=== PATIENT | male | born 1955 | race Caucasian/White ===

== ENCOUNTER 2017-10-31 13:49 | Inpatient (IN) | payer BC ==
[2017-10-31] MEDS ORDERED: NITROGLYCERIN OINT 1 INCH/GM PACKET TOPICAL STA (14:30)
[2017-10-31] MEDS ORDERED: ASPIRIN 81 MG PO STA (14:30)
[2017-10-31] MEDS ORDERED: HEPARIN SODIUM,PORCINE 5,000 UNIT/ML 1 ML VIAL IV ONE (14:33)
--- NOTE | 2017-10-31 14:33 | ED ---
General Adult HPI - General Chief complaint: Chest Pain Stated complaint: heart attack-sent by Time Seen by Provider: 10/31/17 14:00 Source: patient, RN notes reviewed Mode of arrival: wheelchair Limitations: no limitations - History of Present Illness Initial comments: This is a 62-year-old male who presents emergency Department because he had a stress test this morning and was called back because the stress test was abnormal. Patient states she's been having intermittent left-sided chest pain with arm pain. Patient states he has the chest pain in the arm pain currently. Patient denies any shortness of breath difficulty breathing or diaphoresis. Patient denies any nausea vomiting diarrhea. Patient denies any recent fever chills or cough. Patient denies any lightheadedness dizziness or near-syncopal episode. - Related Data Home Medications Medication Instructions Recorded Confirmed Allopurinol [Zyloprim] 300 mg PO DAILY 10/31/17 10/31/17 Aspirin EC [Ecotrin Low Dose] 81 mg PO DAILY 10/31/17 10/31/17 Fenofibrate Nanocrystallized 145 mg PO DAILY 10/31/17 10/31/17 [Fenofibrate] Fish Oil/Dha/Epa [Fish Oil 1,200 1 cap PO DAILY 10/31/17 10/31/17 mg Fish Oil] Loratadine [Claritin] 10 mg PO DAILY 10/31/17 10/31/17 Losartan/Hydrochlorothiazide 1 tab PO DAILY 10/31/17 10/31/17 [Losartan-Hctz 100-25 mg Tab] Multivitamins, Thera [Multivitamin 1 tab PO DAILY 10/31/17 10/31/17 (formulary)] Allergies Allergy/AdvReac Type Severity Reaction Status Date / Time morphine Allergy Rash/Hives Verified 10/31/17 14:29 Review of Systems ROS Statement: Those systems with pertinent positive or pertinent negative responses have been documented in the HPI. ROS Other: All systems not noted in ROS Statement are negative. Past Medical History Past Medical History: Coronary Artery Disease (CAD), Hyperlipidemia, Hypertension History of Any Multi-Drug Resistant Organisms: None Reported Past Surgical History: Back Surgery Past Psychological History: No Psychological Hx Reported Smoking Status: Never smoker Past Alcohol Use History: Daily Past Drug Use History: Marijuana General Exam - General Exam Comments Initial Comments: GENERAL: Patient is well-developed and well-nourished. Patient is nontoxic and well- hydrated and is in no acute distress. ENT: Neck is soft and supple. No significant lymphadenopathy is noted. Oropharynx is clear. Moist mucous membranes. Neck has full range of motion without eliciting any pain. EYES: The sclera were anicteric and conjunctiva were pink and moist. Extraocular movements were intact and pupils were equal round and reactive to light. Eyelids were unremarkable. PULMONARY: Unlabored respirations. Good breath sounds bilaterally. No audible rales rhonchi or wheezing was noted. CARDIOVASCULAR: There is a regular rate and rhythm without any murmurs gallops or rubs. ABDOMEN: Soft and nontender with normal bowel sounds. No palpable organomegaly was noted. There is no palpable pulsatile mass. SKIN: Skin is clear with no lesions or rashes and otherwise unremarkable. NEUROLOGIC: Patient is alert and oriented x3. Cranial nerves II through XII are grossly intact. Motor and sensory are also intact. Normal speech, volume and content. Symmetrical smile. MUSCULOSKELETAL: Normal extremities with adequate strength and full range of motion. No lower extremity swelling or edema. No calf tenderness. LYMPHATICS: No significant lymphadenopathy is noted PSYCHIATRIC: Normal psychiatric evaluation. Normal interpersonal interactions appears functionally intact in deals appropriately with others. No signs of depression. No signs of anxiety. Limitations: no limitations Course Vital Signs 10/31/17 10/31/17 13:51 15:00 Temperature 98.2 F 98.1 F Pulse Rate 96 84 Respiratory 20 18 Rate Blood Pressure 134/93 161/94 O2 Sat by Pulse 99 98 Oximetry Medical Decision Making - Medical Decision Making EKG shows normal sinus rhythm at 85 bpm DC interval is 160 QRS is 88 QT interval 364 QTC is 433. Patient's EKG shows no ST segment elevation or depression or T wave abnormalities are noted. Patient's chest x-ray shows no acute abnormality. Patient had a positive stress test earlier today. I started the patient heparin because of the positive stress test. I spoke with Dr. Gilman. I spoke with Dr. Pardo he agreed to admit the patient admitted the patient I consult cardiology I continued heparin and aspirin and Nitrol paste on the floor. - Lab Data Result diagrams: 10/31/17 14:00 10/31/17 14:00 Lab Results 10/31/17 10/31/17 10/31/17 Range/Units 14:00 14:00 14:00 WBC 7.6 (3.8-10.6) k/uL RBC 4.93 (4.30-5.90) m/uL Hgb 17.3 (13.0-17.5) gm/dL Hct 50.6 (39.0-53.0) % MCV 102.6 H (80.0-100.0) fL MCH 35.2 H (25.0-35.0) pg MCHC 34.3 (31.0-37.0) g/dL RDW 12.1 (11.5-15.5) % Plt Count 201 (150-450) k/uL Neutrophils % 55 % Lymphocytes % 33 % Monocytes % 7 % Eosinophils % 1 % Basophils % 1 % Neutrophils # 4.1 (1.3-7.7) k/uL Lymphocytes # 2.5 (1.0-4.8) k/uL Monocytes # 0.5 (0-1.0) k/uL Eosinophils # 0.1 (0-0.7) k/uL Basophils # 0.1 (0-0.2) k/uL Macrocytosis Slight PT (9.0-12.0) sec INR (<1.2) APTT (22.0-30.0) sec Sodium 143 (137-145) mmol/L Potassium 4.0 (3.5-5.1) mmol/L Chloride 103 (98-107) mmol/L Carbon Dioxide 27 (22-30) mmol/L Anion Gap 13 mmol/L BUN 17 (9-20) mg/dL Creatinine 1.01 (0.66-1.25) mg/dL Est GFR (MDRD) Af Amer >60 (>60 ml/min/1.73 sqM) Est GFR (MDRD) Non-Af >60 (>60 ml/min/1.73 sqM) Glucose 98 (74-99) mg/dL Calcium 10.4 H (8.4-10.2) mg/dL Magnesium 1.6 (1.6-2.3) mg/dL Total Bilirubin 0.6 (0.2-1.3) mg/dL AST 51 (17-59) U/L ALT 65 (21-72) U/L Alkaline Phosphatase 56 (38-126) U/L Total Creatine Kinase 194 H (55-170) U/L CK-MB (CK-2) 2.5 H* (0.0-2.4) ng/mL CK-MB (CK-2) Rel Index 1.3 Troponin I <0.012 (0.000-0.034) ng/mL Total Protein 7.7 (6.3-8.2) g/dL Albumin 4.7 (3.5-5.0) g/dL 10/31/17 Range/Units 14:00 WBC (3.8-10.6) k/uL RBC (4.30-5.90) m/uL Hgb (13.0-17.5) gm/dL Hct (39.0-53.0) % MCV (80.0-100.0) fL MCH (25.0-35.0) pg MCHC (31.0-37.0) g/dL RDW (11.5-15.5) % Plt Count (150-450) k/uL Neutrophils % % Lymphocytes % % Monocytes % % Eosinophils % % Basophils % % Neutrophils # (1.3-7.7) k/uL Lymphocytes # (1.0-4.8) k/uL Monocytes # (0-1.0) k/uL Eosinophils # (0-0.7) k/uL Basophils # (0-0.2) k/uL Macrocytosis PT 10.6 (9.0-12.0) sec INR 1.1 (<1.2) APTT 23.3 (22.0-30.0) sec Sodium (137-145) mmol/L Potassium (3.5-5.1) mmol/L Chloride (98-107) mmol/L Carbon Dioxide (22-30) mmol/L Anion Gap mmol/L BUN (9-20) mg/dL Creatinine (0.66-1.25) mg/dL Est GFR (MDRD) Af Amer (>60 ml/min/1.73 sqM) Est GFR (MDRD) Non-Af (>60 ml/min/1.73 sqM) Glucose (74-99) mg/dL Calcium (8.4-10.2) mg/dL Magnesium (1.6-2.3) mg/dL Total Bilirubin (0.2-1.3) mg/dL AST (17-59) U/L ALT (21-72) U/L Alkaline Phosphatase (38-126) U/L Total Creatine Kinase (55-170) U/L CK-MB (CK-2) (0.0-2.4) ng/mL CK-MB (CK-2) Rel Index Troponin I (0.000-0.034) ng/mL Total Protein (6.3-8.2) g/dL Albumin (3.5-5.0) g/dL Critical Care Time Critical Care Time: Yes Total Critical Care Time: 35 Disposition Clinical Impression: Unstable angina pectoris Disposition: ADMITTED IP TO THIS HOSP Referrals: Ti Ngo DO [Primary Care Provider] - 1-2 days Time of Disposition: 16:42
[2017-10-31 14:44] LABS: Basophils # (A) 0.1 k/uL (0-0.2); Basophils % (A) 1 %; Eosinophils # (A) 0.1 k/uL (0-0.7); Eosinophils % (A) 1 %; HCT 50.6 % (39.0-53.0); HGB 17.3 gm/dL (13.0-17.5); Lymphocytes # (A) 2.5 k/uL (1.0-4.8); Lymphocytes % (A) 33 %; MCH 35.2 pg (25.0-35.0); MCHC 34.3 g/dL (31.0-37.0); MCV 102.6 fL (80.0-100.0); Macrocytosis Slight; Mean Platelet Volume 8.1; Monocytes # (A) 0.5 k/uL (0-1.0); Monocytes % (A) 7 %; Neutrophils # (A) 4.1 k/uL (1.3-7.7); Neutrophils % (A) 55 %; Platelet Count 201 k/uL (150-450); RBC 4.93 m/uL (4.30-5.90); RDW 12.1 % (11.5-15.5); WBC 7.6 k/uL (3.8-10.6)
[2017-10-31] MEDS ORDERED: HEPARIN SOD,PORK IN 0.45% NACL 25,000 UNIT in 0.45% NACL 1 500ML.BAG IV SCH (14:45)
[2017-10-31 14:48] LABS: ALT 65 U/L (21-72); AST 51 U/L (17-59); Albumin 4.7 g/dL (3.5-5.0); Alkaline Phosphatase 56 U/L (38-126); Anion Gap 13 mmol/L; Blood Urea Nitrogen 17 mg/dL (9-20); Calcium 10.4 mg/dL (8.4-10.2); Carbon Dioxide 27 mmol/L (22-30); Chloride 103 mmol/L (98-107); Glucose 98 mg/dL (74-99); INR 1.1 (<1.2); Magnesium 1.6 mg/dL (1.6-2.3); Partial Thromboplastin Time 23.3 sec (22.0-30.0); Prothrombin Time 10.6 sec (9.0-12.0); Sodium 143 mmol/L (137-145); Total Bilirubin 0.6 mg/dL (0.2-1.3); Total Protein 7.7 g/dL (6.3-8.2)
--- NOTE | 2017-10-31 14:51 | XR ---
EXAMINATION TYPE: XR chest 2V DATE OF EXAM: 10/31/2017 COMPARISON: NONE HISTORY: Shortness of breath TECHNIQUE: Frontal and lateral views of the chest are obtained. FINDINGS: Scattered senescent parenchymal changes noted. No evidence for infiltrate. No evidence for atelectasis. Heart size is stable. Mediastinal structures are stable and grossly unremarkable. No evidence for hilar prominence. Degenerative changes dorsal spine. IMPRESSION: 1. No evidence for acute pulmonary disease.
[2017-10-31 15:00] LABS: Creatine Kinase 194 U/L (55-170)
[2017-10-31 15:12] LABS: Troponin I <0.012 ng/mL (0.000-0.034)
[2017-10-31 15:17] LABS: Creatine Kinase MB 2.5 ng/mL (0.0-2.4)
[2017-10-31] MEDS ORDERED: NITROGLYCERIN SL TABS 0.4 MG TAB SUBLINGUAL PRN (16:08)
[2017-10-31 18:59] VITALS: BMI 35.3
[2017-10-31] MEDS: ACETAMINOPHEN TAB 325 MG TAB PO PRN (20:24)
[2017-10-31 21:51] LABS: Creatine Kinase 135 U/L (55-170)
[2017-10-31 22:05] LABS: Creatine Kinase MB 1.9 ng/mL (0.0-2.4); Troponin I <0.012 ng/mL (0.000-0.034)
[2017-10-31] MEDS: NITROGLYCERIN OINT 1 INCH/GM PACKET TOPICAL SCH (23:25)
--- NOTE | 2017-11-01 00:35 | P.HPIM ---
History of Present Illness H&P Date: 10/31/17 Chief Complaint: Abnormal stress test Patient is a 62-year-old male with known history of hypertension, hyperlipidemia , borderline diabetes and morbid obesity was sent to ER due to abnormal stress test. Patient had a stress test this morning and was called back. Patient initially presented to PCPs office on Tuesday with intermittent chest pains left sided radiating to the left arm. Patient otherwise denied any nausea vomiting or diaphoresis. No associated shortness of breath. Patient says that his mood having intermittent chest pain and radiation to the left shoulder. Patient thought he may have pulled his muscle. Denied any recent trauma or strenuous work. Patient denies any recent fever chills or cough. Patient denies any lightheadedness dizziness or near-syncopal episode. Troponin 1 negative EKG normal sinus rhythm Chest x-ray showed no acute cardio process Review of Systems Constitutional: Patient denies any fever or chills . No generalized weakness or weight loss. Abdomen: Patient denied nausea vomiting and diarrhea and abdominal pain. Cardiovascular: Patient denies any chest pain or short of breath no palpitations. Respiratory: patient denied any cough is from production. No shortness of breath Neurologic: Patient denied any numbness or tingling headache. Musculoskeletal: Patient denies any complaints of joint swelling or deformity. Skin: Negative Psychiatric: Negative Endocrine: No heat or cold intolerance. No recent weight gain. Genitourinary: No dysuria or hematuria. All other 14 point ROS negative except the above Past Medical History Past Medical History: Coronary Artery Disease (CAD), Hyperlipidemia, Hypertension History of Any Multi-Drug Resistant Organisms: None Reported Past Surgical History: Back Surgery Past Psychological History: No Psychological Hx Reported Smoking Status: Former smoker Past Alcohol Use History: Daily Past Drug Use History: Marijuana Medications and Allergies Home Medications Medication Instructions Recorded Confirmed Type Allopurinol [Zyloprim] 300 mg PO DAILY 10/31/17 10/31/17 History Aspirin EC [Ecotrin Low Dose] 81 mg PO DAILY 10/31/17 10/31/17 History Fenofibrate Nanocrystallized 145 mg PO DAILY 10/31/17 10/31/17 History [Fenofibrate] Fish Oil/Dha/Epa [Fish Oil 1,200 1 cap PO DAILY 10/31/17 10/31/17 History mg Fish Oil] Loratadine [Claritin] 10 mg PO DAILY 10/31/17 10/31/17 History Losartan/Hydrochlorothiazide 1 tab PO DAILY 10/31/17 10/31/17 History [Losartan-Hctz 100-25 mg Tab] Multivitamins, Thera [Multivitamin 1 tab PO DAILY 10/31/17 10/31/17 History (formulary)] Allergies Allergy/AdvReac Type Severity Reaction Status Date / Time morphine Allergy Rash/Hives Verified 10/31/17 14:29 Physical Exam Vitals: Vital Signs Temp Pulse Pulse Resp BP BP Pulse Ox 10/31/17 20:28 97.9 F 78 18 120/70 92 L 10/31/17 19:11 73 18 10/31/17 19:05 97.6 F 73 18 155/85 98 10/31/17 18:15 98.3 F 86 16 131/80 96 10/31/17 17:38 73 18 155/85 98 10/31/17 17:00 16 10/31/17 15:00 98.1 F 84 18 161/94 98 10/31/17 13:51 98.2 F 96 20 134/93 99 Intake and Output 10/31/17 10/31/17 10/31/17 06:59 14:59 22:59 Intake Total 180 Output Total 350 Balance -170 Intake: Oral 180 Output: Urine 350 Other: Voiding Method Toilet # Voids 1 Weight 124.738 kg 124.738 kg Patient Weight 11/01/17 06:59 Weight 124.738 kg PHYSICAL EXAMINATION: Patient is lying in the bed comfortably, no acute distress, awake alert and oriented.. HEENT: Normocephalic. Neck is supple. Pupils reactive. Nostrils clear. Oral cavity is moist. Ears reveal no drainage. Neck reveals no JVD, carotid bruits, or thyromegaly. CHEST EXAMINATION: Trachea is central. Symmetrical expansion. Lung [place] clear to auscultation and percussion. CARDIAC: Normal S1, S2 with no gallops. No murmurs ABDOMEN: Soft. Bowel sounds normal. No organomegaly. No abdominal bruits. Extremities: reveal no edema. No clubbing or cyanosis Neurologically awake, alert, oriented x3 with well-coordinated movements. No focal deficits noted Skin: No rash or skin lesions. Psychiatric: Coperative. Nonsuicidal Musculoskeletal: No joint swelling or deformity. Normal range of motion. Results CBC & Chem 7: 10/31/17 14:00 10/31/17 14:00 Labs: Abnormal Lab Results - Last 24 Hours (Table) 10/31/17 10/31/17 10/31/17 Range/Units 14:00 14:00 14:00 MCV 102.6 H (80.0-100.0) fL MCH 35.2 H (25.0-35.0) pg APTT (22.0-30.0) sec Calcium 10.4 H (8.4-10.2) mg/dL Total Creatine Kinase 194 H (55-170) U/L CK-MB (CK-2) 2.5 H* (0.0-2.4) ng/mL 10/31/17 Range/Units 21:06 MCV (80.0-100.0) fL MCH (25.0-35.0) pg APTT 32.0 H (22.0-30.0) sec Calcium (8.4-10.2) mg/dL Total Creatine Kinase (55-170) U/L CK-MB (CK-2) (0.0-2.4) ng/mL Thrombosis Risk Factor Assmnt - Choose All That Apply Any of the Below Risk Factors Present?: Yes Each Factor Represents 1 point: Age 41-60 years, Obesity (BMI >25) Other Risk Factors: No Other congenital or acquired thrombophilia - If yes, enter type in comment: No Thrombosis Risk Factor Assessment Total Risk Factor Score: 2 Thrombosis Risk Factor Assessment Level: Low Risk Assessment and Plan Assessment: Chest pain with abnormal stress test Possible unstable angina Hypertension Hyperlipidemia Borderline diabetes and at this Mild obesity with BMI 35.3 Plan: Patient be continued on telemetry monitoring. Serial EKG and troponins. Continued heparin drip. Continue with aspirin. Check lipid panel. Cardiology evaluation. Follow up closely. Further recommendations based on the clinical course. Time with Patient: Greater than 30
[2017-11-01 02:09] LABS: Creatine Kinase 137 U/L (55-170)
[2017-11-01 02:23] LABS: Troponin I <0.012 ng/mL (0.000-0.034)
[2017-11-01 05:51] LABS: Anion Gap 10 mmol/L; Blood Urea Nitrogen 19 mg/dL (9-20); Calcium 9.8 mg/dL (8.4-10.2); Carbon Dioxide 29 mmol/L (22-30); Chloride 104 mmol/L (98-107); Cholesterol 144 mg/dL (<200); Glucose 112 mg/dL (74-99); HDL Cholesterol 54 mg/dL (40-60); LDL Cholesterol,Calculated 63 mg/dL (0-99); Sodium 143 mmol/L (137-145); Triglycerides 135 mg/dL (<150)
[2017-11-01] MEDS: ACETAMINOPHEN TAB 325 MG TAB PO PRN (06:00)
[2017-11-01] MEDS: NITROGLYCERIN OINT 1 INCH/GM PACKET TOPICAL SCH (06:00)
[2017-11-01 06:08] LABS: Basophils # (A) 0.1 k/uL (0-0.2); Basophils % (A) 1 %; Eosinophils # (A) 0.2 k/uL (0-0.7); Eosinophils % (A) 3 %; HCT 46.9 % (39.0-53.0); HGB 15.8 gm/dL (13.0-17.5); Lymphocytes % (A) 44 %; MCH 35.5 pg (25.0-35.0); MCHC 33.8 g/dL (31.0-37.0); MCV 105.1 fL (80.0-100.0); Macrocytosis Slight; Mean Platelet Volume 8.5; Monocytes # (A) 0.5 k/uL (0-1.0); Monocytes % (A) 7 %; Neutrophils # (A) 2.9 k/uL (1.3-7.7); Neutrophils % (A) 42 %; Platelet Count 167 k/uL (150-450); RBC 4.46 m/uL (4.30-5.90); RDW 12.2 % (11.5-15.5); WBC 6.9 k/uL (3.8-10.6)
[2017-11-01] MEDS ORDERED: ATORVASTATIN 80 MG TAB PO STA (07:08)
[2017-11-01] MEDS ORDERED: SODIUM CHLORIDE 0.9% 1,000 ML in EMPTY BAG 1 BAG IV ONE (07:08)
[2017-11-01] MEDS ORDERED: ALPRAZolam 0.5 MG TAB PO PRN (07:08)
[2017-11-01] MEDS ORDERED: ALPRAZolam 0.25 MG TAB PO PRN (07:08)
[2017-11-01] MEDS ORDERED: NITROGLYCERIN SL TABS 0.4 MG TAB SUBLINGUAL PRN (07:08)
[2017-11-01] MEDS ORDERED: ASPIRIN 325 MG TAB PO STA (07:08)
--- NOTE | 2017-11-01 08:15 | CONS ---
CONSULTATION Mr. Cruz is a 62-year-old male patient of Dr. Ngo who was admitted to the hospital after an abnormal myocardial perfusion imaging. The patient last week has been complaining of chest discomfort. The discomfort is left-sided, going into the arm into the back, but has positional pattern and worse with certain movement of the arm. He underwent a myocardial perfusion imaging yesterday where he exercised on the treadmill for 7 minutes, had borderline EKG changes, but his nuclear scan was reported showing evidence of inferior wall ischemia. Because of those findings, the patient was called back to the hospital by his primary care physician and admitted. At the time of my evaluation, he has some chest discomfort. The discomfort is positional as well and worse when he takes a deep breath. He has no history of exertional chest discomfort or prior history of cardiac disease. He had no prior history of stress test. He has no PND, orthopnea, or peripheral edema. No syncope. His coronary risk factors are remarkable for history of hypertension and hyperlipidemia. He has borderline diabetes mellitus. No family history of premature coronary artery disease and he stopped smoking 30 years ago. MEDICATION: His medications at home include: Losartan HCT 100/25 mg daily, fenofibrate 145 mg daily, aspirin once a day. Allopurinol. REVIEW OF SYSTEMS: RESPIRATORY SYSTEM: He has no history of documented asthma, emphysema or bronchitis. GI system: No recent GI bleed. No peptic ulcer disease. system: No dysuria or hematuria. Nervous system: No stroke or seizure. SOCIAL HISTORY: Patient drinks at least 6 beers a day. PHYSICAL EXAMINATION: A 62-year-old male, alert and oriented in no apparent distress. Blood pressure 111/70 with a heart rate in the 60s. HEAD: Normocephalic eyes sclerae anicteric. Neck good carotid upstroke. No bruit. No jugular venous distention. LUNGS: Clear to auscultation. Heart regular rate and rhythm, S1, S2. No S3, no S4 with a systolic murmur heard at the base, ejection type. No diastolic murmur. No rub. ABDOMEN: Soft, nontender. Positive bowel sounds. No organomegaly. EXTREMITIES: No edema. Intact pulses. LAB DATA: Lab data revealed troponin less than 0.012. Cholesterol 144, LDL of 63, triglycerides 135, BUN and creatinine 19 and 1.0, hemoglobin 15.8. The EKG revealed sinus mechanism, normal axis and intervals. Normal electrocardiogram. Chest x-ray shows no acute changes. IMPRESSION: 1. Chest discomfort with an abnormal myocardial perfusion imaging. His chest discomfort, has atypical features for ischemic heart disease and appears to be musculoskeletal, but in view of the results of stress test and multiple risk factors, a possibility of coronary artery disease cannot be totally excluded. 2. History of hypertension. 3. Hyperlipidemia. RECOMMENDATION: I have recommended to obtain an echocardiogram with Doppler. I will also recommend to proceed with a coronary angiography. The rationale behind the procedures as well as risks and complication were discussed with the patient who was in full understanding and agreement. Depending on results of testing, further recommendations will be made. Thank you for this consult. We will follow with you. MMSYLVESTERL / IJN: [id number] /
[2017-11-01] MEDS ORDERED: ALLOPURINOL 300 MG TAB PO SCH (09:00)
[2017-11-01] MEDS ORDERED: LOSARTAN-HCTZ 50-12.5 MG 1 EACH TAB PO SCH (09:00)
[2017-11-01] MEDS ORDERED: FENOFIBRATE 160 MG TAB PO SCH (09:00)
[2017-11-01] MEDS ORDERED: ASPIRIN 325 MG TAB PO SCH (09:00)
[2017-11-01] MEDS ORDERED: LORATADINE 10 MG TAB PO SCH (09:00)
[2017-11-01] MEDS ORDERED: MULTIVITAMINS, THERA 1 EACH TAB PO SCH (09:00)
--- NOTE | 2017-11-01 10:17 | ECHOF ---
Referral Reason:cp MEASUREMENTS -------- HEIGHT: 188.0 cm WEIGHT: 120.7 kg BP: 96/60 RVIDd: 3.5 cm (< 3.3) IVSd: 1.1 cm (0.6 - 1.1) LVIDd: 4.8 cm (3.9 - 5.3) LVPWd: 1.1 cm (0.6 - 1.1) IVSs: 1.6 cm LVIDs: 3.5 cm LVPWs: 1.7 cm LA Diam: 3.5 cm (2.7 - 3.8) LAESV Index (A-L): 23.48 ml/m Ao Diam: 3.7 cm (2.0 - 3.7) AV Cusp: 2.3 cm (1.5 - 2.6) MV EXCURSION: 22.213 mm (> 18.000) MV EF SLOPE: 103 mm/s (70 - 150) EPSS: 0.4 cm MV E Yosef: 0.79 m/s MV DecT: 258 ms MV A Yosef: 0.96 m/s MV E/A Ratio: 0.82 RAP: 5.00 mmHg RVSP: 29.84 mmHg FINDINGS -------- Sinus rhythm. This was a technically good study. The left ventricular size is normal. There is borderline concentric left ventricular hypertrophy. Overall left ventricular systolic function is normal with, an EF between 60 - 65 %. The right ventricle is mildly enlarged. Normal LA size by volume 22+/-6 ml/m2. The right atrium is normal in size. Aortic valve is trileaflet and is mildly thickened. The mitral valve is normal. Mild tricuspid regurgitation present. Right ventricular systolic pressure is normal at < 35 mmHg. Pulmonic valve appears structurally normal. The aortic root is dilated measuring 3.7cm. Normal inferior vena cava with normal inspiratory collapse consistent with estimated right atrial pre ssure of 5 mmHg. There is no pericardial effusion. CONCLUSIONS -------- 1. Sinus rhythm. 2. This was a technically good study. 3. The left ventricular size is normal. 4. There is borderline concentric left ventricular hypertrophy. 5. Overall left ventricular systolic function is normal with, an EF between 60 - 65 %. 6. The right ventricle is mildly enlarged. 7. Normal LA size by volume 22+/-6 ml/m2. 8. The right atrium is normal in size. 9. Aortic valve is trileaflet and is mildly thickened. 10. The mitral valve is normal. 11. Mild tricuspid regurgitation present. 12. Right ventricular systolic pressure is normal at < 35 mmHg. 13. Pulmonic valve appears structurally normal. 14. The aortic root is dilated measuring 3.7cm. 15. Normal inferior vena cava with normal inspiratory collapse consistent with estimated right atrial pressure of 5 mmHg. 16. There is no pericardial effusion. CUTTER GRIND TOOL TECHNICIAN: Carla Hughes RDCS
[2017-11-01] MEDS ORDERED: SODIUM CHLORIDE 0.9% 1,000 ML IV ONE ×2 (11:00)
[2017-11-01] MEDS ORDERED: LIDOCAINE 2% INJ 20 MG/ML SQ ONE ×2 (11:23)
[2017-11-01] MEDS ORDERED: fentaNYL (PF) 50 MCG/ML 2 ML AMP IVP ONE (11:23)
[2017-11-01] MEDS ORDERED: VERAPAMIL SYRINGE (5 MG/10 ML) INTRAARTER ONE (11:26)
[2017-11-01] MEDS ORDERED: HEPARIN SODIUM 1,000 UN/ML (10ML VL) ONE (11:33)
[2017-11-01] MEDS ORDERED: HEPARIN SODIUM 1,000 UN/ML (10ML VL) IV ONE (11:35)
[2017-11-01] MEDS ORDERED: IOHEXOL 350 MG/ML 125ML BOTTLE INJ ONE (11:37)
[2017-11-01] MEDS ORDERED: RX INFO: IV CONTRAST WAS GIVEN 1 EACH MISC MISCELLANE PRN (11:50)
[2017-11-01] MEDS ORDERED: SODIUM CHLORIDE 0.9% 1,000 ML IV SCH (12:00)
[2017-11-01 12:13] VITALS: RESP 18
--- NOTE | 2017-11-01 12:30 | CC ---
CARDIAC CATHETERIZATION REPORT Mr. Cruz is a 62-year-old male with a history of hypertension, hyperlipidemia, who has been complaining of episode of chest discomfort. He has underwent a myocardial perfusion imaging that revealed evidence of inducible ischemia involving the inferior wall. In view of that, recommendation was made regarding cardiac catheterization. The procedure as well as risks and the complication were discussed with the patient who is in full understanding and agreement. PROCEDURE: Patient was brought to [facility] in the fasting semi-sedated state after receiving fentanyl and Benadryl and achieving moderate conscious sedated state. Using Xylocaine anesthesia in the Seldinger technique, a 6-Taiwanese sheath was introduced in the right radial artery. Selective right and left coronary angiography performed using 5-Taiwanese 3.5 bend right and left April catheter. Multiple views of the coronary artery including hemiaxial views were obtained. Following that, a 5-Taiwanese tight pigtail catheter was introduced in the left ventricle and a 30-degree VILLANUEVA view of the left ventricle was obtained. Following that, the catheter and sheaths were removed. Hemostasis was obtained with deployment of a TR band. There was no immediate complication. Patient was returned to his room in stable condition. Of note, the patient received 5000 units of intravenous heparin as well as intra-arterial verapamil. FINDINGS: FLUOROSCOPY: There is mild calcification involving the left anterior descending artery. LEFT MAIN: This is a large-sized vessel trifurcating in left circumflex, left anterior descending artery and ramus intermedius. Left main coronary artery has no evidence of high-grade stenosis LEFT ANTERIOR DESCENDING ARTERY: This is a large-sized vessel with a wrap around apex segment giving rise to a large diagonal branch. In the mid segment of the LAD, there is mild plaque of 10% to 20% with mild calcification. The rest of the vessel has no high- grade stenosis. LEFT CIRCUMFLEX: This is a nondominant vessel, large in caliber giving rise to a large obtuse marginal branch that has no evidence of high-grade stenosis. RAMUS INTERMEDIUS: This is a small size vessel that has no evidence of high-grade stenosis. RIGHT CORONARY ARTERY: This is a large dominant vessel bifurcating distally PDA and posterolateral segment and branches. The right coronary artery as well as branches have no evidence of obstructive coronary disease. LEFT VENTRICULOGRAM: Left ventriculogram was performed in 30-degree VILLANUEVA view and revealed normal left ventricular size and systolic function. Ejection fraction is 60%. There was no significant mitral regurgitation. HEMODYNAMICS: There was no gradient across the aortic valve. The left ventricle end- diastolic pressure was 8 to 12 mmHg. CONCLUSION: 1. Mild plaque in the mid . 2. Normal left ventricular size and systolic function. RECOMMENDATION: In view of finding anatomy, I recommend continuing medical therapy with aggressive coronary risk medications that has been initiated. Those findings and recommendation were discussed with the patient and his family who are in full understanding and agreement. Duration of procedure is 22 minutes. MMODL / IJN: [id number] /
--- NOTE | 2017-11-01 12:39 | LTR ---
November 01, 2017 Re: Marcial Hitchcockgiovannisharon Dear Dr. Ngo: I had the opportunity to perform cardiac catheterization on Mr. Cruz at [facility] on the 01 of November and a full copy of the procedure note will be forwarded to you. In brief, he was found to have mild plaque in the mid with a preserved left ventricular size and systolic function. Base on those findings, I recommend to continue medical therapy with aggressive coronary risk modification to be initiated. Thank you again for allowing me the opportunity to participate in his care. Please feel free to call for any questions. Sincerely yours, MD ADDIE LopezL / SALLIEN: [phone] /
[2017-11-01 16:06] VITALS: BP 123/70; PULSE 97; TEMP 97.6
--- NOTE | 2017-11-01 22:54 | P.DS ---
Providers Date of admission: 10/31/17 16:08 Expected date of discharge: 11/01/17 Attending physician: Martin Pardo Consults: 10/31/17 16:08 Consult Physician Urgent Consulting Provider: [facility] Consult Reason/Comments: Unstable angina Do you want consulting provider notified?: Yes Primary care physician: [facility] Course: Discharge diagnosis Chest pain with abnormal stress test. Status post cardiac catheterization with mild plague in the LAD Hypertension Hyperlipidemia Borderline diabetes Mild obesity with BMI 35.3 Patient is a 62-year-old male with known history of hypertension, hyperlipidemia , borderline diabetes and morbid obesity was sent to ER due to abnormal stress test. Patient had a stress test this morning and was called back. Patient initially presented to PCPs office on Tuesday with intermittent chest pains left sided radiating to the left arm. Patient otherwise denied any nausea vomiting or diaphoresis. No associated shortness of breath. Patient says that his mood having intermittent chest pain and radiation to the left shoulder. Patient thought he may have pulled his muscle. Denied any recent trauma or strenuous work. Patient denies any recent fever chills or cough. Patient denies any lightheadedness dizziness or near-syncopal episode. Troponin 1 negative EKG normal sinus rhythm Chest x-ray showed no acute cardio process Patient was continued on telemetry monitoring. Serial EKG and troponins Negative. Continued heparin drip. Continue with aspirin. Checked lipid panel. 2-D echo showed normal ejection fraction. Patient underwent cardiac catheterization which showed LAD mid mild 10- 20% plague. Otherwise patient currently denied any chest pain. Denied by cardiology. Patient is stable to discharge home. Discharge physical examination was done Patient Condition at Discharge: Stable Plan - Discharge Summary Discharge Rx Participant: Yes New Discharge Prescriptions: Continue Multivitamins, Thera [Multivitamin (formulary)] 1 tab PO DAILY Losartan/Hydrochlorothiazide [Losartan-Hctz 100-25 mg Tab] 1 tab PO DAILY Loratadine [Claritin] 10 mg PO DAILY Fish Oil/Dha/Epa [Fish Oil 1,200 mg Fish Oil] 1 cap PO DAILY Aspirin EC [Ecotrin Low Dose] 81 mg PO DAILY Fenofibrate Nanocrystallized [Fenofibrate] 145 mg PO DAILY Allopurinol [Zyloprim] 300 mg PO DAILY Discharge Medication List Allopurinol [Zyloprim] 300 mg PO DAILY 10/31/17 [History] Aspirin EC [Ecotrin Low Dose] 81 mg PO DAILY 10/31/17 [History] Fenofibrate Nanocrystallized [Fenofibrate] 145 mg PO DAILY 10/31/17 [History] Fish Oil/Dha/Epa [Fish Oil 1,200 mg Fish Oil] 1 cap PO DAILY 10/31/17 [History] Loratadine [Claritin] 10 mg PO DAILY 10/31/17 [History] Losartan/Hydrochlorothiazide [Losartan-Hctz 100-25 mg Tab] 1 tab PO DAILY [History] Multivitamins, Thera [Multivitamin (formulary)] 1 tab PO DAILY 10/31/17 [History ] Follow up Appointment(s)/Referral(s): Sayda Gilman MD [STAFF PHYSICIAN] - 11/09/17 11:15 am Ti Ngo DO [Primary Care Provider] - 11/04/17 11:15 am Patient Instructions/Handouts: Acute Coronary Syndrome (DC), After Radial Heart Catheterization (GEN) Discharge Disposition: HOME SELF-CARE
[2017-11-02] MEDS ORDERED: ASPIRIN 81 MG PO SCH (09:00)
== END 2017-11-01 17:33 | disposition home or self-care (01) | DRG 287 ==
LOC: EC 13:49 → 6SEL 16:08
PROVIDERS: ADMIT Internal Medicine; ATTEND Internal Medicine
PROC: B2111ZZ Fluoroscopy of Multiple Coronary Arteries using Low Osmolar Contrast (ICD-10-PCS; 2017-11-01)
PROC: 4A023N7 Measurement of Cardiac Sampling and Pressure, Left Heart, Percutaneous Approach (ICD-10-PCS; principal; 2017-11-01 10:47)
DX: I25.110 Atherosclerotic heart disease of native coronary artery with unstable angina pectoris (principal); E66.9 Obesity, unspecified; E78.5 Hyperlipidemia, unspecified; I10 Essential (primary) hypertension; R73.03 Prediabetes; Z68.35 Body mass index [BMI] 35.0-35.9, adult; Z88.6 Allergy status to analgesic agent; Z79.899 Other long term (current) drug therapy; Z79.82 Long term (current) use of aspirin; Z87.891 Personal history of nicotine dependence; Z82.49 Family history of ischemic heart disease and other diseases of the circulatory system
CPT/HCPCS: 36415; 71046; 78452; 80048; 80053; 80061; 82550; 82553; 83735; 84484; 85025; 85610; 85730; 93005; 93017; 93306; 93458; 94760; 96365; 96366; 96376; 99291

== ENCOUNTER → 2017-10-31 | Outpatient (CLI) | payer BC ==
--- NOTE | 2017-10-31 10:23 | EST ---
EXERCISE STRESS DATE OF SERVICE: 10/31/2017 AGE: 62 SEX: Male HT: 6'2" WT: 275 pounds PROTOCOL: Cardiolite Paulie STAGE: III DURATION OF EXERCISE: 7 minutes HEART RATE REST: 91 BLOOD PRESSURE REST: 143/87 MAXIMUM HEART RATE ACHIEVED: 145 MAXIMUM BLOOD PRESSURE: 165/68 85% MPHR: 136 100% MPHR: 160 METS: 8 INDICATIONS: Chest pain. CLINICAL INFORMATION: Baseline EKG shows sinus rhythm, normal axis, normal intervals. The patient exercised on Paulie protocol for a total of 7 minutes achieving 8 METs, 90% of predicted maximal heart rate without chest pain. At peak exercise, there was [address]-segment depression noted. CONCLUSIONS: 1. Average exercise tolerance. 2. Abnormal stress test by EKG criteria. 3. Cardiolite portion of this stress test will be reported separately. JIMMY / SALLIEN: [id number] /
--- NOTE | 2017-10-31 11:15 | NM ---
EXAMINATION TYPE: NM stress cardiolite complete DATE OF EXAM: 10/31/2017 COMPARISON: NONE HISTORY: Chest pain TECHNIQUE: After the intravenous administration of 10.82 mCi Tc 99m Sestamibi - Rest images obtained 55 minutes post injection. The patient exercised using a ANGIE protocol and 1 minute prior to peak exercise was injected with 30 mCi Tc 99m Sestamibi - Stress images obtained 15 minutes post injectio n. FINDINGS: Targeted heart rate was achieved during performance of the study. Review of stress and rest SPECT alexandria ges demonstrates area stress-induced reversible ischemia involving the inferior wall of the myocardiu m.. Gated analysis shows normal wall motion with an estimated left ventricular ejection fraction of 53 %. IMPRESSION: Findings compatible with stress-induced reversible ischemia inferior wall myocardium. Referring physi nolberto notified.
== END | disposition home or self-care (01) ==
LOC: RADNMMAIN 07:41
PROVIDERS: ATTEND Family Medicine
DX: I25.9 Chronic ischemic heart disease, unspecified (principal)
CPT/HCPCS: 93017; 78452; A9500